=== PATIENT | male | born 1970 | race Caucasian/White ===

== ENCOUNTER 2024-05-18 14:53 | Emergency (ER) | payer BC, SELFPAY ==
--- NOTE | ~2024-05-18 | XR_ITS ---
EXAMINATION: XR ELBOW, LEFT CLINICAL INFORMATION: pain and fall COMPARISON: None available. TECHNIQUE: Three views of the left elbow. FINDINGS: Abnormal bony body adjacent the lack or nonprocess of the proximal ulna likely degenerative in etiology. There is overlying soft tissue swelling likely ulnar bursitis. Cannot completely exclude injury to ulnar osteophyte. Clinical correlation required. No joint effusion. XR/XR elbow LT 2V IMPRESSION: Olecranon spur with bony body. Overlying soft tissue swelling. Favor degenerative phenomenon but cannot exclude acute trauma to this region. Electronically signed by: Dyllan Graff MD 05/18/2024 04:38 PM EST
--- NOTE | ~2024-05-18 | CT_ITS ---
EXAMINATION: CT HEAD WITHOUT CONTRAST CT CERVICAL SPINE WITHOUT CONTRAST CT FACIAL BONES WITHOUT CONTRAST CLINICAL INFORMATION: Fall. COMPARISON: None available. TECHNIQUE: Contiguous axial imaging was performed from the skull base to vertex without intravenous administration of contrast. Contiguous axial CT images of the cervical spine were obtained without contrast. Contiguous axial CT images of the facial bones were obtained without contrast. Sagittal and coronal reformats were provided and reviewed. This CT examination was performed using dose optimization techniques as appropriate, variously including the following: *Automated exposure control *Adjustment of mA and/or kV according to patient size (this includes techniques or standardized protocols for targeted exams where dose is matched to indication/reason for exam; i.e. extremities or head) *Use of iterative reconstruction technique DLP: 1781 mGy-cm. FINDINGS: HEAD: There is no evidence of acute intracranial hemorrhage or territorial infarction. No abnormal mass effect or midline shift is seen. Brenner to white matter differentiation is well preserved. No extra-axial fluid collections are identified. The ventricles are normal in size. There is no abnormal attenuation within the brain parenchyma. Soft tissue swelling overlying the right orbit. Right facial fractures, better evaluated on the concurrent facial bone CT. Complete opacification of the right maxillary sinus as well as partial opacification of the ethmoid air cells. CERVICAL SPINE: Normal vertebral body alignment. The normal cervical lordosis is maintained. No acute fracture or subluxation. No loss of vertebral body height. Mild loss of intervertebral disc height with small endplate osteophytes at C5-C6. Mild bilateral facet arthropathy at C5-C6. No lytic or blastic osseous lesion. Unremarkable prevertebral soft tissues. No abnormal soft tissue mass or fluid collection. Thyroid within normal limits. Visualized lung apices are clear. No significant central canal or neural foraminal stenosis. FACIAL BONES: Comminuted and displaced fracture through the right zygomatic arch, with the largest fracture gap posteriorly measuring up to 0.2 cm (see axial image 44/65). There are nondisplaced fractures through the lateral and central aspect of the superior right orbit, as well as through the lateral aspect of the right orbital wall, with mild displacement. Small foci of air along the superior orbital fracture. Additionally, there are comminuted and displaced fractures along the floor of the right orbit measuring up to 1.9 cm in ML dimension with small foci of air. No herniation of the retro-orbital fat or rectus musculature through the right orbital floor of fracture. Comminuted fractures extend through the posterior aspect of the right orbit, as well as through the superior and lateral sylvester of the right maxillary sinus, with multiple small foci of air within the completely opacified right maxillary sinus. There is hyperdense material within the sinus, consistent with bladder blood products. Additionally, there is a mildly displaced fracture through the medial wall of the right maxillary sinus. No nasal bone fracture. No left-sided facial fracture. No mandibular fracture. The pterygoid plates are intact. The lamina papyracea are intact. Prominent soft tissue swelling overlying the right orbit with subcutaneous emphysema. No retro-orbital air or fluid collection. The remaining paranasal sinuses and mastoid air cells are clear. There is leftward deviation of the nasal septum. The ethmoid roofs are symmetric. The carotid canals are normally covered by bone. There is no maxillary periapical disease. The mastoid air cells and visualized middle ear cavities are well-aerated. The TMJs are unremarkable. The imaged portions of the brain demonstrate no acute abnormality. CT/CT cervical spine wo IV con IMPRESSION: HEAD: No acute intracranial hemorrhage or mass effect. CERVICAL SPINE: No acute fracture or subluxation. Mild degenerative disc disease and bilateral facet arthropathy at C5-C6. FACIAL BONES: Comminuted and displaced fracture through the right zygomatic arch as well as fractures through the superior, lateral, and inferior sylvester of the right orbit as well as through the superior, lateral, and medial sylvester of the right maxillary sinus. No herniation of the retro-orbital fat or rectus musculature through the orbital floor fracture. Prominent soft tissue swelling overlying the right orbit with subcutaneous emphysema. Electronically signed by: Bonilla Ernandez MD 05/18/2024 04:34 PM [facility]
--- NOTE | ~2024-05-18 | CT_ITS ---
EXAMINATION: CT CHEST, ABDOMEN AND PELVIS WITH CONTRAST CLINICAL INFORMATION: Fall from 8 feet COMPARISON: None TECHNIQUE: Multidetector volumetric CT imaging of the chest, abdomen and pelvis was obtained after the administration of 85 mL of Omnipaque 300 intravenous contrast without immediate adverse reactions. Axial MIP volume rendering provided. Sagittal and coronal reformatted images were obtained. This CT examination was performed using dose optimization techniques as appropriate, variously including the following: *Automated exposure control *Adjustment of mA and/or kV according to patient size (this includes techniques or standardized protocols for targeted exams where dose is matched to indication/reason for exam; i.e. extremities or head) *Use of iterative reconstruction technique DLP: 792 mGy-cm FINDINGS: LUNGS: Mild centrilobular emphysema. No hemothorax. No pneumothorax. MEDIASTINUM: The heart is not enlarged. There is no pericardial effusion or pericardial thickening. Aorta and pulmonary arteries are not dilated. There are no pathologically enlarged mediastinal or hilar lymph nodes. PLEURA: There is no pleural effusion. No pleural mass or thickening. AXILLA: No lymphadenopathy. LIVER, GALLBLADDER, AND BILIARY TREE: The liver is normal in size, shape, and attenuation. There are no focal hepatic lesions. There is no intra or extrahepatic bile duct dilation. The gallbladder is unremarkable with no evidence of radiopaque gallstones, gallbladder wall thickening, or obvious pericholecystic inflammatory changes. PANCREAS: Unremarkable SPLEEN: Unremarkable ADRENAL GLANDS: Unremarkable KIDNEYS AND URETERS: The kidneys are normal in size, shape, and attenuation. No hydronephrosis, hydroureter, or calculi seen. No perinephric stranding. BLADDER: Unremarkable GASTROINTESTINAL TRACT: The small and large bowel are unremarkable. The appendix is unremarkable. ABDOMINAL WALL: No significant hernia is appreciated. LYMPH NODES: Normal PERITONEUM: No free intraperitoneal fluid or air. VASCULAR: Atherosclerotic plaque most pronounced in the infrarenal abdominal aorta and iliac arteries. PELVIC VISCERA: Unremarkable OSSEOUS STRUCTURES: Unremarkable CT/CT abdomen pelvis w IV con IMPRESSION: No acute traumatic injury in the chest, abdomen, or pelvis. Electronically signed by: Shawn Delgado MD 05/18/2024 04:23 PM [facility]
[2024-05-18 15:01] VITALS: BP 137/74; PULSE 82; RESP 16; TEMP 35.4; O2SAT 98; BMI 26.5
[2024-05-18 15:12] LABS: MANUAL DIFF FLAG NO
[2024-05-18 15:14] LABS: Basophils Absolute Auto 0.1 X10*3/uL (0.0-0.2); Basophils Percent Auto 0.9 % (0-2); Eosinophils Absolute Auto 0.1 X10*3/uL (0.0-0.4); Eosinophils Percent Auto 1.5 % (0-4); Hematocrit 41.6 % (42.0-52.0); Hemoglobin 14.2 g/dl (14.0-18.0); Imm Gran Abs Auto 0.03 X10*3/uL (0.00-0.03); Imm Gran Pct Auto 0.3 % (0.0-0.4); Lymphocytes Absolute Auto 3.7 X10*3/uL (1.2-4.9); Mean Corpuscular HGB Conc 34.1 g/dl (31.0-36.0); Mean Corpuscular Hemoglobin 31.8 pg (27.0-33.0); Mean Corpuscular Volume 93.1 fL (80.0-98.0); Mean Platelet Volume 11.1 fL (9.4-12.4); Monocytes Absolute Auto 0.6 X10*3/uL (0.1-1.2); Monocytes Percent Auto 7.3 % (2-11); Platelet Count 243 X10*3/uL (160-400); Red Blood Count 4.47 X10*6/uL (4.60-5.80); Red Cell Distribution Width 12.1 % (11.0-16.0); White Blood Count 8.6 X10*3/uL (4.8-10.8)
[2024-05-18 15:21] LABS: INTERNATIONAL NORM RATIO 0.9 (0.9-1.1); Prothrombin Time 10.7 SEC (10.9-12.4)
--- NOTE | 2024-05-18 15:22 | ED.FALL ---
HPI - Fall General Chief Complaint: Fall Stated Complaint: fall off ladder, eye inj Time Seen by Provider: 05/18/24 15:01 Source: patient and EMS Mode of arrival: ambulatory Limitations: no limitations History of Present Illness ED Provider: DEBORAH BOYER Narrative: 53 yo male no PMH not on thinners here with c/o working today and fell off 8 foot ladder onto concrete + LOC about 40 seconds, has laceration to R eyebrow area. Has L elbow pain. No vomiting, Tdap is not UTD. He denies any other injuries his friends witnessed it and rushed him here. On arrival he c/o pain to R periorbital area but no vision changes. He is perseverating on things. MD complaint: fall Onset (ago): minute(s) ([employer]) Fall from: other (ladder about 8 feet up) Fall witnessed: yes, by bystander (friends) Place fall occurred: other (outdoors) Loss of consciousness: yes Length of LOC: second(s) (40) Prolonged down time: no Symptoms prior to fall: none Context: tripped/slipped Location of injury: head and face Location of injury - extremities: left: elbow Severity: moderate Quality: dull and aching Associated symptoms (after fall): headache and other (laceration) Related Data Allergies Allergy/AdvReac Type Severity Reaction Status Date / Time No Known Allergies Allergy Verified 05/18/24 15:01 Review of Systems Review of Systems: Constitutional : No Fever, No Chills, No Fatigue ENT/Mouth : No sore throat, No Rhinorrhea Eyes: No Eye Pain, No Swelling, No Redness Cardiovascular : No Chest Pain, No SOB, No Dyspnea on Exertion Respiratory : No Cough, No Sputum Gastrointestinal : No Nausea, No Vomiting, No Diarrhea, No abdominal Pain Genitourinary : No Dysuria, No Urinary Frequency, No Hematuria, Musculoskeletal : pos joint pain, No Myalgias, No Joint Swelling Skin : No Skin Lesions, No rash, pos laceration Neuro : No Weakness, No Numbness, No Dizziness, positive Headache All other systems reviewed and are negative [facility] Past Medical History Attestation statement: The following information was validated with the patient. Source: old records reviewed Medical History (Updated 05/18/24 @ 15:46 by Griselda Hernandez DO) No pertinent past medical history Social History Social History Smoked in Last 30 Days: No Use of substances other than those prescribed or required for medical reasons: No Advance Directives: No Advance Directives Information Provided: No Do you have a plan to hurt others: No Plan Physical Exam Vital Signs: Vital Signs: Last Vital Signs Temp 95.7 F L 05/18/24 15:01 Pulse 80 05/18/24 15:27 Resp 16 05/18/24 15:27 BP 140/73 H 05/18/24 15:27 Pulse Ox 99 05/18/24 15:27 O2 Del Method Room Air 05/18/24 15:27 BMI result Body Mass Index 26.5 Appearance: Alert. Oriented X3. No acute distress. Eyes: Pupils equal, round and reactive to light. no hyphema vision is intact in R eye - 2cm lateral laceration to R periorbital area - EOMintact no signs of entrapment , vision intact, PERRL 3mm ENT: Pharynx normal. Neck: Normal inspection. Neck supple. CVS: Normal heart rate and rhythm. Pulses normal. Respiratory: No respiratory distress. Breath sounds normal. Abdomen: Soft and nontender. Skin: Skin warm and dry. Normal skin color. Normal skin turgor. Extremities: No lower extremity edema. L elbow abrasion but normal ROM Neuro: Oriented X 3. No motor deficit. No sensory deficit. Course Course Course Narrative: signed out to Dr. Jiang pending work up Medications Administered Discontinued Medications Generic Name Dose Route Start Last Admin Trade Name Freq PRN Reason Stop Dose Admin Diphtheria/Tetanus/Acell Pertussis 0.5 ml 05/18/24 15:04 05/18/24 15:33 Diphth,Pertus(Acell),Tet Adult 0.5 Ml Syringe IM 05/18/24 15:05 0.5 ml .ONCE ONE Administration Iohexol 100 ml 05/18/24 15:34 05/18/24 15:35 Iohexol 350 Mg/Ml 100 Ml Infus..Btl IV 05/18/24 15:35 85 ml ONCE ONE Administration Lidocaine HCl 5 ml 05/18/24 15:04 05/18/24 15:34 Lidocaine Hcl 1 % Mpf 5 Ml Vial SUBCUT 05/18/24 15:05 5 ml ONCE ONE Administration Morphine Sulfate 4 mg 05/18/24 15:04 05/18/24 15:33 Morphine Sulfate 4 Mg/Ml Cartridge IVPUSH 05/18/24 15:05 4 mg ONCE ONE Administration Protocol Ondansetron HCl 4 mg 05/18/24 15:04 05/18/24 15:33 Ondansetron Hcl 4 Mg/2 Ml Vial IVPUSH 05/18/24 15:05 4 mg ONCE ONE Administration Medical Decision Making Medical Decision Making MDM Narrative: 53 yo male with no PMH not on thinners significant fall and LOC at this time he is perseverating will obtain labs, CT scan of head/face/cspine/chest and abdomen. Update Tdap and IV morphine for pain. Currenlty he is GCS 15 but at times did ask the same question. Trauma CT scans Differential Diagnosis Differential Diagnoses: The differential diagnosis associated with the presentation includes traumatic injury, ICH, concussion, soft tissue injury, polytrauma Admission/Observation Consideration of admission/observation: Escalation of care including admission/observation considered Lab Data [facility] Lab Attestation statement: I reviewed the patient's lab results. 05/18/24 15:09 05/18/24 15:09 Labs: Lab Results 05/18/24 Range/Units 15:09 WBC 8.6 (4.8-10.8) X10*3/uL RBC 4.47 L (4.60-5.80) X10*6/uL Hgb 14.2 (14.0-18.0) g/dl Hct 41.6 L (42.0-52.0) % MCV 93.1 (80.0-98.0) fL MCH 31.8 (27.0-33.0) pg MCHC 34.1 (31.0-36.0) g/dl RDW 12.1 (11.0-16.0) % Plt Count 243 (160-400) X10*3/uL MPV 11.1 (9.4-12.4) fL Immature Gran % (Auto) 0.3 (0.0-0.4) % Neut % (Auto) 47.0 (45-73) % Lymph % (Auto) 43.0 H (20-40) % Webb % (Auto) 7.3 (2-11) % Eos % (Auto) 1.5 (0-4) % Baso % (Auto) 0.9 (0-2) % Lymph # (Auto) 3.7 (1.2-4.9) X10*3/uL Webb # (Auto) 0.6 (0.1-1.2) X10*3/uL Eos # (Auto) 0.1 (0.0-0.4) X10*3/uL Baso # (Auto) 0.1 (0.0-0.2) X10*3/uL Abs Immat Gran (auto) 0.03 (0.00-0.03) X10*3/uL Absolute Neuts (auto) 4.0 (2.0-8.3) x10*3/uL Absolute Nucleated RBC 0.000 (0.0-0.012) X10*3/uL Nucleated RBC % (auto) 0.0 (0.0-0.2) /100WBC PT 10.7 L (10.9-12.4) SEC INR 0.9 (0.9-1.1) Sodium 143 (135-145) mmol/L Potassium 3.5 (3.3-5.1) mmol/L Chloride 107 (96-108) mmol/L Carbon Dioxide 24 (22-29) mmol/L Anion Gap 16 (12-20) BUN 15 (9-16) mg/dL Creatinine 1.10 (0.5-1.4) mg/dL Estim Creat Clear Calc 83.6 Estimated GFR > 60 Random Glucose 127 H (60-115) mg/dL Calcium 8.8 (8.4-10.2) mg/dL Magnesium 2.2 (1.6-2.6) mg/dL Total Bilirubin 0.4 (0.0-1.0) mg/dL Direct Bilirubin 0.1 (0.0-0.5) mg/dL AST 41 H (5-37) U/L ALT 29 (0-40) U/L Alkaline Phosphatase 69 (39-117) U/L Total Protein 7.0 (6.5-8.0) g/dL Albumin 4.1 (3.5-5.0) g/dL Ethyl Alcohol 81 mg/dL Independent Interpretation I performed an independent interpretation of an: Plain X-Ray and CT Scan Independent Historian Clinical information obtained from an independent historian. History obtained from or confirmed by: Spouse and Friend Discharge Plan Discharge Clinical Impression: Concussion with loss of consciousness Qualifiers: Encounter type: initial encounter Qualified Code(s): S06.0X9A - Concussion with loss of consciousness of unspecified duration, initial encounter Facial laceration Qualifiers: Encounter type: initial encounter Qualified Code(s): S01.81XA - Laceration without foreign body of other part of head, initial encounter Head injury Qualifiers: Encounter type: initial encounter Qualified Code(s): S09.90XA - Unspecified injury of head, initial encounter Patient Disposition: Still a Patient Print Language: Irish
[2024-05-18 15:27] VITALS: BP 140/73; PULSE 80; RESP 16; O2SAT 99
[2024-05-18] MEDS: ondansetron HCL 4 MG/2 ML VIAL IVPUSH (15:33)
[2024-05-18] MEDS: Morphine Sulfate 4 MG/ML CARTRIDGE IVPUSH ×2 (15:33→16:21)
[2024-05-18] MEDS: Diphth,Pertus(ACell),Tet Adult 0.5 ML SYRINGE IM (15:33)
[2024-05-18] MEDS: Lidocaine HCl 1 % MPF 5 ML VIAL SUBCUT (15:34)
[2024-05-18] MEDS: iohexoL 350 MG/ML 100 ML INFUS..BTL IV (15:35)
[2024-05-18 15:43] LABS: Alanine Aminotransferase 29 U/L (0-40); Albumin Level 4.1 g/dL (3.5-5.0); Alkaline Phosphatase 69 U/L (39-117); Anion Gap 16 (12-20); Aspartate Amino Transferase 41 U/L (5-37); Bilirubin Direct 0.1 mg/dL (0.0-0.5); Bilirubin Total 0.4 mg/dL (0.0-1.0); Blood Urea Nitrogen 15 mg/dL (9-16); Calcium 8.8 mg/dL (8.4-10.2); Carbon Dioxide 24 mmol/L (22-29); Chloride 107 mmol/L (96-108); Creatinine Clr Calc Pharmacy 83.6; Estimated Glomerular Filt Rate > 60; Ethanol 81 mg/dL; Glucose Random 127 mg/dL (60-115); Magnesium 2.2 mg/dL (1.6-2.6); Potassium 3.5 mmol/L (3.3-5.1); Sodium 143 mmol/L (135-145)
[2024-05-18 16:22] VITALS: BP 155/94; PULSE 80; RESP 16; O2SAT 97
[2024-05-18] MEDS: HYDROmorphone HCl 1 MG/ML SYRINGE IVPUSH (17:08)
[2024-05-18] MEDS: Piperacillin Sodium/Tazobactam 4.5 GM in 0.9 % Sodium Chloride 100 ML IV (17:40)
[2024-05-18 18:05] VITALS: BP 142/65; PULSE 72; RESP 16; TEMP 36.7; O2SAT 98
== END 2024-05-18 18:07 ==
PROVIDERS: Emergency Medicine; Emergency Provider Emergency Medicine Emergency Medical Services
DX: S06.0X9A Concussion with loss of consciousness of unspecified duration, initial encounter (principal); S02.841A Fracture of lateral orbital wall, right side, initial encounter for closed fracture; S02.31XA Fracture of orbital floor, right side, initial encounter for closed fracture; S02.19XA Other fracture of base of skull, initial encounter for closed fracture; S02.831A Fracture of medial orbital wall, right side, initial encounter for closed fracture; S02.40EA Zygomatic fracture, right side, initial encounter for closed fracture; S01.111A Laceration without foreign body of right eyelid and periocular area, initial encounter; W11.XXXA Fall on and from ladder, initial encounter; M25.522 Pain in left elbow; Y93.89 Activity, other specified; Y92.9 Unspecified place or not applicable; Y99.0 Civilian activity done for income or pay; Z23 Encounter for immunization
CPT/HCPCS: 12011; 36415; 70450; 70486; 71260; 72125; 73070; 74177; 80048; 80076; 80307; 83735; 85025; 85610; 90471; 90715; 96365; 96375; 96376; 99285; J1171; J2003; J2270; J2405; J2543; Q9967